=== PATIENT | male | born 1985 | race Caucasian/White ===

== ENCOUNTER 2022-05-26 21:54 | Emergency (ER) | payer OTHER, SELFPAY ==
[2022-05-26 22:03] VITALS: BP 129/78; PULSE 86; RESP 17; TEMP 36.6; O2SAT 99; BMI 27.2
[2022-05-26] MEDS: TET,DIPH,PERTUSS(ACELL),VAC/PF 0.5 ML SYRINGE IM (22:10)
--- NOTE | 2022-05-27 01:31 | DI.RAD.S_ITS ---
PROCEDURE: XR HAND LT MIN 3V INDICATIONS: Injury/pain TECHNIQUE: 3 views of the left hand acquired. COMPARISON: None. FINDINGS: Bones: No fractures or dislocations. Carpal bones are normally aligned. No suspicious bony lesions. Soft tissues: No suspicious soft tissue calcifications. IMPRESSION: 1. No fracture or dislocation. Dictated by: Keith Bueno M.D. on 05/27/2022 at 2:03 Approved by: Keith Bueno M.D. on 05/27/2022 at 2:05
--- NOTE | 2022-05-27 01:32 | ED.WOUNDLAC ---
HPI - Wound/Laceration General Chief Complaint: Wound/Laceration Stated Complaint: cut L hand w/ angle pulp grinder Time Seen by Provider: 05/27/22 00:53 Source: patient Mode of arrival: Ambulatory History of Present Illness HPI narrative: Patient here for injury to the right hand. Has laceration overlying the right 2nd MCP joint dorsal surface. Patient was wearing gloves at work. He was grinding some metal with a pulp grinder. He did kick up and cut through his gloves. Has a 1.5 cm laceration linear shape. Bloodless field. Bleeding has resolved. No numbness tingling or weakness. Injury occurred tonight at work. Tetanus shot given here. Patient is right-handed Related Data Previous Rx's Medication Instructions Recorded cephalexin 500 mg capsule 500 mg PO QID #20 caps 05/27/22 Allergies Allergy/AdvReac Type Severity Reaction Status Date / Time No Known Drug Allergies Allergy Verified 05/26/22 22:06 Review of Systems Review of Systems Narrative: GENERAL: negative chills, fatigue, malaise, fever, sweats. HEENT: negative sinus pain, ear pain, sore throat RESPIRATORY: negative dyspnea, cough CARDIOVASCULAR: negative chest pain, palpitations GASTROINTESTINAL: negative nausea, vomiting, abdominal pain : negative dysuria, frequency, hematuria MUSCULOSKELETAL: negative muscle or bony pain SKIN: negative rash, skin lesions, positive skin injury NEUROLOGIC: negative weakness, numbness ROS Unobtainable: All systems reviewed & are unremarkable except as noted in HPI and below Patient History Social History Smoking Status: Never smoker Smoking Status: Never smoker alcohol intake frequency: a few times a week Substance Use Type: does not use Exam Narrative Exam Narrative: GENERAL: in no distress, not toxic not dyspneic HEAD: Normocephalic. EYES: Pupils equal round EXTREMITIES: No gross deformities. Examination right hand. Dorsal surface of the 2nd MCP joint of the right hand examination there is a 1.5 cm laceration linear along the long axis, not transverse. Bloodless field. Able to see extensor tendon exposure with flexion-extension at the MCP joint. It is possible there is small injury to this tendon. Brisk cap refill of the finger/2nd finger. Light touch intact if finger with brisk cap refills. Able to flex and extend at the MCP PIP and PIP joints of this finger. NEURO: AOx4. SKIN: Warm and dry PSYCH: Not anxious, is cooperative Initial Vital Signs Initial Vital Signs: Vital Signs Temperature 98 F 05/26/22 22:03 Pulse Rate 86 05/26/22 22:03 Respiratory Rate 17 05/26/22 22:03 Blood Pressure 129/78 05/26/22 22:03 Pulse Oximetry 99 05/26/22 22:03 Oxygen Delivery Method 05/26/22 22:03 Procedures Laceration Repair Laceration 1: Time of procedure: :37 Site: hand Side (If applicable): right Size (cm): 1.5 Description: linear Depth: simple, single layer Local Anesthetic: lidocaine 1% Amount of anesthesia used (mL): 2 Pre-repair: wound explored, irrigated extensively and cleansed with chlorhexadine Skin layer closed with: nylon Skin layer suture size: 4-0 Number of sutures: 3 Technique: simple, interrupted Course Orders Ordered: Discontinued Medications Bacitracin (Bacitracin Oint 0.9 Gm Pckt) 1 applic TOP NOW ONE Stop: 05/27/22 01:33 Last Admin: 05/27/22 02:27 Dose: 1 applic Documented By: TAM Cephalexin HCl (Cephalexin 250 Mg Capsule) 500 mg PO NOW ONE Stop: 05/27/22 01:33 Last Admin: 05/27/22 02:27 Dose: 500 mg Documented By: TAM Diphtheria/Tetanus/Acell Pertussis (Tet,Diph,Pertuss(Acell),Vac/Pf 0.5 Ml Syringe) 0.5 ml IM .ONCE ONE Stop: 05/26/22 22:07 Last Admin: 05/26/22 22:10 Dose: 0.5 ml Documented By: JUDE Vital Signs Vital signs: Vital Signs - 8 hr 05/26/22 22:03 Temperature 98 F Pulse Rate 86 Respiratory Rate 17 Blood Pressure 129/78 Pulse Oximetry 99 Oxygen Delivery Method Room Air MDM - Wound/Laceration Differential Diagnosis Differential diagnosis: Likely laceration Imaging Data Extremity x-ray #1: Radiologist's Impression: [address] [address] XRay Report Signed Patient: Zoltan Varela MR#: [id number] : 1985 Acct:[id number] Age/Sex: 36 / M Date of Service: 05/27/22 Loc: ED Accession Number: [id number] ?? Procedure: XR hand LT min 3V Ordering Provider: Bucky Garcia MD PROCEDURE:? XR HAND LT MIN 3V ? INDICATIONS:? Injury/pain ? TECHNIQUE:? 3 views of the left hand acquired.? ? COMPARISON:? None. ? FINDINGS:? ? Bones:? No fractures or dislocations.? Carpal bones are normally aligned.? No suspicious bony lesions.? ? Soft tissues:? No suspicious soft tissue calcifications.? ? ? IMPRESSION:? ? 1. No fracture or dislocation.? ? ? Dictated by: Keith Bueno M.D. on 05/27/2022 at 2:03 ? ? Approved by: Keith Bueno M.D. on 05/27/2022 at 2:05 ? [facility] Narrative Medical decision making narrative: Patient here for injury to the right hand. Has laceration overlying the right 2nd MCP joint dorsal surface. Patient was wearing gloves at work. He was grinding some metal with a pulp grinder. He did kick up and cut through his gloves. Has a 1.5 cm laceration linear shape. Bloodless field. Bleeding has resolved. No numbness tingling or weakness. Injury occurred tonight at work. Tetanus shot given here. Patient is right-handed [facility] CC: ?Finger laceration ? Complicating co-morbidities: ?None Data collected from: Patient ? Medical records reviewed: ?No previous visits ? Differential considered: ?Skin laceration/tendon injury ? Exam documented above, pertinent findings include: 1.5 cm laceration of the right hand ? ? Imaging studies independently reviewed: X-ray of the right hand reviewed, no fracture or dislocation ? Consultations: 1:43 a.m., spoke with Orthopedics Dr. Valentine, patient can follow up in the office for further evaluation. ? Treatments: Keflex/tetanus shot/laceration repair ? Re-evaluations: No new bleeding no new issues during course of stay ? Discussion: Appropriate for discharge home. Exam is reassuring. X-ray imaging is reassuring as well. I reviewed this with Orthopedics and patient can be discharged home and follow up in the office. Return precautions reviewed with patient. Patient and family agree for treatment plan. Wound care instructions given. Work note provided. L and I forms were completed. Finger splint applied to prevent dehiscence. ? Diagnosis: Finger laceration ? Disposition: see below, along with detailed discharge instructions that have been reviewed with patient as well as indications for ED re-evaluation and additional outpatient follow up Discharge Plan Departure Patient Disposition: Home Clinical Impression: Laceration Instructions: DI for Laceration Repair Activity Restrictions/Additional Instructions: No use of your right hand until seen and evaluated by hand surgeon/Orthopedics. Further instructions will be given by provider. Clean wound daily with warm soap and water and then apply a thin layer of topical antibiotic. Use finger splint to prevent further damage of the skin. It is possible you may have injured your tendon. Return if worse or any questions or concerns or redness or discharge from the wound. Prescriptions: New cephalexin 500 mg capsule 500 mg PO QID Qty: 20 0RF Referrals: Kin Valentine MD [Physician] - Stand Alone Forms: Patient Portal/API, Work Release Note
[2022-05-27] MEDS: BACITRACIN OINT 0.9 GM PCKT 1 APPLIC TOP (02:27)
[2022-05-27] MEDS: cephALEXin 250 MG CAPSULE 500 MG PO (02:27)
[2022-05-27 02:29] VITALS: BP 122/64; PULSE 68; RESP 16; TEMP 36.3; O2SAT 100
--- NOTE | 2022-05-27 02:30 | PC.NURSE ---
DSD applied to wound. Finger splint applied.
== END 2022-05-27 02:31 | disposition home or self-care (01) ==
PROVIDERS: Emergency Provider Emergency Medicine
DX: S61.412A Laceration without foreign body of left hand, initial encounter (principal); W29.8XXA Contact with other powered hand tools and household machinery, initial encounter; Z23 Encounter for immunization
CPT/HCPCS: 12001; 73130; 90471; 99283; 90715